=== PATIENT | male | born 1970 | race Caucasian/White ===

== ENCOUNTER 2024-05-31 17:32 | Emergency (ER) | payer BC, SELFPAY ==
[2024-05-31 17:35] VITALS: BP 182/123; PULSE 70; RESP 14; TEMP 36.2; O2SAT 99; BMI 34.2
[2024-05-31] MEDS: KETOROLAC 30 MG/ML VIAL 15 MG IV ×2 (17:48→19:48)
[2024-05-31 18:11] LABS: Alanine Aminotransferase 20 IU/L (<50); Albumin 4.3 g/dL (3.5-5.0); Albumin Globulin Ratio 1.4 (1.0-2.8); Alkaline Phosphatase 58 U/L (38-126); Aspartate Aminotransferase 25 IU/L (17-59); BUN Creatinine Ratio 12.9 (6-22); Bilirubin Total 0.8 mg/dL (0.2-1.3); Blood Urea Nitrogen 15 mg/dL (9-20); Calcium 9.2 mg/dL (8.4-10.2); Carbon Dioxide 21 mmol/L (22-32); Chloride 100 mmol/L (98-107); Estimated Glomerular Filt Rate > 60 mL/min (>60); Glucose 131 mg/dL (70-100); HEMOLYSIS 64 (0-50); Lipase 82 U/L (23-300); Potassium 4.3 mmol/L (3.4-5.1); Sodium 131 mmol/L (137-145); Total Protein 7.3 g/dL (6.3-8.2)
[2024-05-31 18:15] LABS: Add Manual Diff / Slide Review NO; Basophils Absolute Auto 100 /uL (0-100); Basophils Percent Auto 1.2 % (0-2); Eosinophils Absolute Auto 200 /uL (0-450); Eosinophils Percent Auto 2.3 % (2-4); Hematocrit 40.7 % (41-53); Hemoglobin 14.1 g/dL (13.5-17.5); Lymphocytes Absolute Auto 2700 /uL (1100-4500); Lymphocytes Percent Auto 32.4 % (25-40); Mean Corpuscular HGB Conc 34.7 % (30-36); Mean Corpuscular Hemoglobin 31.1 PG (26-34); Mean Corpuscular Volume 89.6 fL (80-100); Monocytes Absolute Auto 700 /uL (0-900); Monocytes Percent Auto 8.1 % (3-14); Neutrophils Absolute Auto 4600 /uL (1500-7000); Platelet Count 215 X10^3/uL (150-400); Red Blood Cell Count 4.54 X10^6/uL (4.5-5.9); Red Cell Distribution Width 13.1 % (11.6-14.8); White Blood Cell Count 8.2 X10^3/uL (4.5-11.0)
[2024-05-31 18:43] VITALS: PULSE 90; O2SAT 97
[2024-05-31 18:44] VITALS: BP 161/98; PULSE 86; O2SAT 97
--- NOTE | 2024-05-31 18:52 | ED.MALEGU ---
HPI - Male Genitourinary General Chief complaint: Urogenital-Male Stated complaint: abd px Time Seen by Provider: 05/31/24 18:47 Source: patient Mode of arrival: Ambulatory History of Present Illness HPI Narrative: 53-year-old male presents for approximately 3 hours of left-sided abdominal/flank pain. Pain is constant with intermittent worsening. States that he has a remote history of kidney stones and this feels similar. Is here on vacation from [place], has no local doctors. No medications taken prior to arrival. Denies difficulty urinating. Related Data Home Medications Medication Instructions Recorded Confirmed amlodipine 5 mg tablet 5 mg PO DAILY 05/31/24 05/31/24 losartan 100 mg tablet 100 mg PO DAILY 05/31/24 05/31/24 Previous Rx's Medication Instructions Recorded ondansetron 4 mg disintegrating 4 mg PO Q8H PRN nausea and 05/31/24 tablet vomiting #30 tabs oxycodone-acetaminophen 5 mg-325 1 tab PO Q4-6H PRN pain #15 tabs 05/31/24 mg tablet tamsulosin 0.4 mg capsule (Flomax) 0.4 mg PO DAILY #30 caps 05/31/24 Allergies Allergy/AdvReac Type Severity Reaction Status Date / Time No Known Drug Allergies Allergy Verified 05/31/24 17:39 Patient History Medical History Glaucoma Hypertension tobacco type: smokeless tobacco alcohol intake frequency: a few times a month Substance Use Type: does not use Exam Initial Vital Signs Initial Vital Signs: Vital Signs Temperature 97.1 F L 05/31/24 17:35 Pulse Rate 70 05/31/24 17:35 Respiratory Rate 14 05/31/24 17:35 Blood Pressure 182/123 H 05/31/24 17:35 Pulse Oximetry 99 05/31/24 17:35 Oxygen Delivery Method Room Air 05/31/24 17:35 Const: Awake, alert, no acute distress, nontoxic appearing Cardiac: regular rate, regular rhythm RESP: unlabored, clear bilaterally, no wheezing GI: Soft, nontender, nondistended MSK: No CVA tenderness bilaterally Skin: Warm, Dry, intact, no rashes Neuro: AO x3, CN II-XII grossly intact, moves all extremities Course Orders Ordered: Discontinued Medications Ketorolac Tromethamine (Ketorolac 30 Mg/Ml Vial) 15 mg IV NOW ONE Stop: 05/31/24 17:45 Last Admin: 05/31/24 17:48 Dose: 15 mg Documented By: MISTI Ketorolac Tromethamine (Ketorolac 30 Mg/Ml Vial) 15 mg IV NOW ONE Stop: 05/31/24 19:44 Last Admin: 05/31/24 19:48 Dose: 15 mg Documented By: Ondansetron HCl (Ondansetron 4 Mg/2 Ml Inj) 4 mg IV NOW PRN PRN Reason: Nausea And Vomiting Ondansetron HCl (Ondansetron 4 Mg Odt) 4 mg PO NOW PRN PRN Reason: Nausea And Vomiting Oxycodone HCl (Oxycodone Ir 5 Mg Tablet) 5 mg PO NOW ONE Stop: 05/31/24 19:44 Last Admin: 05/31/24 19:48 Dose: 5 mg Documented By: Oxycodone/Acetaminophen (Oxycodone/Apap 5/325 Prepack) 1 bottle MISC DIRECTED ONE Stop: 05/31/24 19:48 Last Admin: 05/31/24 20:00 Dose: 1 bottle Documented By: Vital Signs Vital signs: Vital Signs - 8 hr 05/31/24 17:35 05/31/24 18:43 05/31/24 18:44 Temperature 97.1 F L Pulse Rate 70 90 Respiratory Rate 14 Blood Pressure 182/123 H 161/98 H Pulse Oximetry 99 97 Oxygen Delivery Method Room Air 05/31/24 18:44 05/31/24 19:04 05/31/24 19:30 Temperature Pulse Rate 86 92 H 85 Respiratory Rate Blood Pressure Pulse Oximetry 97 98 97 Oxygen Delivery Method MDM - Male Genitourinary Lab Data 05/31/24 17:45 05/31/24 17:45 Labs: Lab Results 05/31/24 Range/Units 17:45 WBC 8.2 (4.5-11.0) X10^3/uL RBC 4.54 (4.5-5.9) X10^6/uL Hgb 14.1 (13.5-17.5) g/dL Hct 40.7 L (41-53) % MCV 89.6 (80-100) fL MCH 31.1 (26-34) PG MCHC 34.7 (30-36) % RDW 13.1 (11.6-14.8) % Plt Count 215 (150-400) X10^3/uL Neut % (Auto) 56.0 (50-75) % Lymph % (Auto) 32.4 (25-40) % [place] % (Auto) 8.1 (3-14) % Eos % (Auto) 2.3 (2-4) % Baso % (Auto) 1.2 (0-2) % Neut # (Auto) 4600 (6666-0589) /uL Lymph # (Auto) 2700 (0497-7565) /uL [place] # (Auto) 700 (0-900) /uL Eos # (Auto) 200 (0-450) /uL Baso # (Auto) 100 (0-100) /uL Sodium 131 L (137-145) mmol/L Potassium 4.3 (3.4-5.1) mmol/L Chloride 100 (98-107) mmol/L Carbon Dioxide 21 L (22-32) mmol/L BUN 15 (9-20) mg/dL Creatinine 1.16 (0.66-1.25) mg/dL Estimated GFR > 60 (>60) mL/min BUN/Creatinine Ratio 12.9 (6-22) Glucose 131 H (70-100) mg/dL Calcium 9.2 (8.4-10.2) mg/dL Total Bilirubin 0.8 (0.2-1.3) mg/dL AST 25 (17-59) IU/L ALT 20 (<50) IU/L Alkaline Phosphatase 58 (38-126) U/L Total Protein 7.3 (6.3-8.2) g/dL Albumin 4.3 (3.5-5.0) g/dL Globulin 3.0 (1.7-4.1) g/dL Albumin/Globulin Ratio 1.4 (1.0-2.8) Lipase 82 (23-300) U/L Urine Dip Bedside Urine Glucose Negative Bedside Urine Bilirubin - Negative Bedside Urine Ketone - Negative Urine Specific [place] 1.030 Bedside Urine Occult Blood - Negative Bedside Urine pH 5.0 Bedside Urine Protein - Negative Bedside Urine Urobilinogen - Negative Bedside Urine Nitrite - Negative Bedside Urine Leukocytes - Negative Esterase Imaging Data CT scan - abdomen/pelvis: Radiologist's Impression: PROCEDURE: CT KIDNEY URETER BLADDER (KUB) INDICATIONS: L FLANK PAIN, REMOTE HX STONES TECHNIQUE: Axial sections were acquired from the lung bases to the pubic symphysis. Coronal and sagittal reformats were performed. For radiation dose reduction, the following was used: automated exposure control, adjustment of mA and/or kV according to patient size. COMPARISON: None. FINDINGS: Image quality: Diagnostic. Lower Chest: Mild dependent atelectasis in posterior aspect of bilateral lung bases are seen. Heart size is normal, no pericardial effusion. URINARY: Right Kidney: Small non-obstructing stones are noted in midpole right kidney measures up to 4 mm in size. No hydronephrosis. Right Ureter: No hydroureter. Left Kidney: Moderate left-sided hydronephrosis and perinephric fat stranding is seen. Multiple nonobstructing left renal calculi are seen measures up to 4 mm in size. Left Ureter: Moderate left-sided hydroureter and periureteral fat stranding. 6 millimeter calcification is noted within distal right ureter and measures 1250 Hounsfield unit in density series 2, image 77. Bladder: Normal wall thickness. No stones. ABDOMEN: Liver: No contour-deforming solid mass. Gallbladder: Numerous partially calcified stones are seen filling gallbladder lumen. No gallbladder wall thickening. Biliary ducts: No biliary dilation. Pancreas: No ductal dilation. Spleen: Size is within normal limits. Adrenal Glands: No adrenal nodules. Stomach and Bowel: Normal colonic caliber, without significant wall thickening. Appendix is visualized and is within normal limits. Mild sigmoid diverticulosis is seen without CT evidence of acute diverticulitis. Peritoneum: No abnormal intraperitoneal fluid. No free air. Ventral Wall: No hernia. Abdominal Nodes: No enlarged retroperitoneal or mesenteric lymph nodes. Vessels: Aorta and inferior vena cava are normal in size. PELVIS: Pelvic Organs: Unremarkable. Pelvic Nodes: Unremarkable. Miscellaneous: No inguinal hernias are seen. Bones: No aggressive appearing bony lesions. IMPRESSION: 1. 6 mm left distal ureteral stone with moderate left-sided hydronephrosis and proximal to mid hydroureter. The stone measures 1250 on spillage in it in density. 2. Bilateral subcentimeter nonobstructing stones. No right-sided hydronephrosis or hydroureter. Normal appearing urinary bladder. 3. No bowel obstruction or abnormal bowel wall thickening. No free fluid or free air. Normal appendix. 4. Cholelithiasis without CT evidence of acute cholecystitis. Dictated by: Willi Forman M.D. on 05/31/2024 at 19:12 Approved by: Willi Forman M.D. on 05/31/2024 at 19:20 [facility] Narrative Medical decision making narrative: Well-appearing patient with left-sided pain concerned for kidney stones. Physical exam is reassuring, abdomen soft, no peritoneal signs. Pain almost entirely resolved after single dose of Toradol. Laboratory work reviewed, WBC count 8.2, hemoglobin 14.1, platelets 215, sodium 131, potassium 4.3, creatinine 1.16, normal liver enzymes. Point of care urinalysis shows no signs of infection. CT of the abdomen and pelvis did show a 6 mm left-sided stone with moderate hydronephrosis. Since pain is well controlled, patient was tolerating p.o., and kidney function normal patient is stable for outpatient management at this time. Patient is going back to [place] in 1 week. He was counseled to follow up a urologist in the area, but a local referral number was provided if patient wanted local follow up. Copy of CT given to patient on disc. Pain medications, nausea medications, Flomax sent to a local pharmacy for patient to begin taking. ED return precautions discussed Discharge Plan Departure Patient Disposition: Home Clinical Impression: Kidney stone on left side Instructions: DI for Kidney Stones Activity Restrictions/Additional Instructions: You have a 6 mm kidney stone on your left-hand side. Your kidney function and other blood work looks normal today. You will be discharged on several different medications. The 1st is oxycodone, which can help with the pain. The 2nd is Zofran, which helps with nausea, and the 3rd is Flomax, which helps to pass the kidney stone. Take these medications with ibuprofen to help with pain. When you get back home you will need to follow up with a urologist. A referral number to a local urologist has been provided if needed. Prescriptions: New oxycodone-acetaminophen 5-325 mg tablet 1 tab PO Q4-6H PRN (Reason: pain) Qty: 15 0RF ondansetron 4 mg tablet,disintegrating 4 mg PO Q8H PRN (Reason: nausea and vomiting) Qty: 30 0RF tamsulosin [Flomax] 0.4 mg capsule 0.4 mg PO DAILY Qty: 30 0RF No Action amlodipine 5 mg Tablet 5 mg PO DAILY losartan 100 mg Tablet 100 mg PO DAILY Referrals: Solitario Salazar DO [Physician] - Miscellaneous,Doctor, MD [Primary Care Provider] - Stand Alone Forms: Patient Portal/API
[2024-05-31 19:04] VITALS: PULSE 92; O2SAT 98
[2024-05-31 19:30] VITALS: PULSE 85; O2SAT 97
[2024-05-31] MEDS: OXYCODONE IR 5 MG TABLET PO (19:48)
[2024-05-31] MEDS: OXYCODONE/APAP 5/325 PREPACK 1 BOTTLE MISC (20:00)
[2024-05-31 20:02] VITALS: BP 157/85; PULSE 87; RESP 22; TEMP 36.9; O2SAT 100
== END 2024-05-31 20:03 | disposition home or self-care (01) ==
PROVIDERS: Emergency Medicine; Emergency Provider Emergency Medicine
DX: N20.0 Calculus of kidney (principal)
CPT/HCPCS: 36415; 74176; 80053; 81003; 83690; 85025; 96374; 96376; 99284; J1885